=== PATIENT | female | born 1995 | race Caucasian/White ===

== ENCOUNTER 2016-12-29 21:06 | Emergency (ER) | payer OTHER ==
[~2016-12-29] VITALS: Ht 157.5 cm; Wt 104.3 kg
[~2016-12-29 21:06] MED LIST: COPAXONE40 MG/1 ML SC; SOLU-MEDRO1000 MG/8 IV; SOLU-MEDROL1000 MG IV; TOPAMAX25 M3 PO; TYLENOL EXTRA500 M2 PO; VICODIN 5-3001 EACH PO; VITAMIN D5000 UNIT PO
--- NOTE | 2016-12-29 22:30 | ED GENERAL ADULT ---
History of Present Illness General Chief Complaint: General Adult Stated Complaint: MS FLARE UP Source: patient, family, old records Exam Limitations: no limitations Vital Signs & Intake/Output Vital Signs & Intake/Output Vital Signs Date Time Temp Pulse Resp B/P Pulse O2 O2 Flow FiO2 Ox Delivery Rate 12/30 2123 97.8 73 20 127/85 98 Room Air Allergies Coded Allergies: aspirin (Severe, FACIAL SWELLING 12/29/16) NSAIDS (Non-Steroidal Anti-Inflamma (FACE SWELLING/SOB 12/29/16) Reconcile Medications Acetaminophen (Tylenol Extra Strength) 500 MG TABLET 1 TAB PO TID PRN HEADACHE Cholecalciferol (Vitamin D3) (Vitamin D) 5,000 UNIT TABLET 1 TAB PO DAILY VITAMIN (Reported) Glatiramer Acetate (Copaxone) 40 MG/ML SYRINGE 1 SYR SC Tuesday MS (Reported) Hydrocodone/Acetaminophen (Vicodin 5-300 MG Tablet) 5 MG-300 MG TABLET 1 TAB PO Q6H PRN HEADACHE Methylprednisolone. (Solu-Medrol 1,000 MG Vial) 1,000 MG/8 ML VIAL 1 GM IV DAILY MULTIPLE SCLEROSIS Topiramate (Topamax) 25 MG TABLET 1 TAB PO TID MIGRAINES (Reported) Triage Note: TRIAGE: PT TO ER WITH MOTHER C/C HEADACHE PAIN SINCE THIS MORNING WHICH TRIGGERS A MS FLARE UP FOR HER. DID NOT TRY ANY OTC PAIN RELIEVERS, TAKES TOPAMAX DAILY AT BASELINE. Triage Nurses Notes Reviewed? yes : No Patient currently breastfeeds: No HPI: Patient presented with an MS exacerbation. Patient states over the past few days her legs have been feeling more weak and she is intermittently losing vision in her left eye. Patient was talking to her neurologist via emailed today and he had offered to put her on oral steroids however when she responded that she would like that he never responded. Patient presents to the emergency room for evaluation. Patient denies any fevers or chills. There is no coughing. Patient denies any injury. Past History Travel History Traveled to [place] past 21 day No Medical History Any Pertinent Medical History? see below for history Neurological: migraine, multiple sclerosis EENT: NONE Cardiovascular: NONE Respiratory: NONE Gastrointestinal: NONE Hepatic: NONE Renal: NONE Musculoskeletal: NONE Psychiatric: NONE Endocrine: NONE Blood Disorders: NONE Cancer(s): NONE PREVENTION RN/Reproductive: NONE History of MRSA: No History of VRE: No History of CDIFF: No Surgical History Surgical History: Tonsillectomy, foot surgery. Psychosocial History Who do you live with Family Services at Home None What is your primary language Macedonian Tobacco Use: Quit >30 days ago ETOH Use: occasional use Illicit Drug Use: denies illicit drug use Family History Family History, If Any: cousin FH: multiple sclerosis Hx Contributory? No Review of Systems Review of Systems Constitutional: Reports: see HPI, weakness. EENTM: Reports: no symptoms. Respiratory: Reports: no symptoms. Cardiovascular: Reports: no symptoms. GI: Reports: no symptoms. Genitourinary: Reports: no symptoms. Musculoskeletal: Reports: no symptoms. Skin: Reports: no symptoms. Neurological/Psychological: Reports: see HPI. Hematologic/Endocrine: Reports: no symptoms. Immunologic/Allergic: Reports: no symptoms. All Other Systems: Reviewed and Negative Physical Exam Physical Exam General Appearance: well developed/nourished, alert, awake, anxious, mild distress Head: atraumatic, normal appearance Eyes: Bilateral: PERRL, EOMI. Ears, Nose, Throat: normal pharynx, normal ENT inspection, hearing grossly normal Neck: normal inspection, supple, full range of motion Respiratory: normal breath sounds, chest non-tender, no respiratory distress, lungs clear Cardiovascular: regular rate/rhythm, normal peripheral pulses Gastrointestinal: normal bowel sounds, soft, non-tender, no organomegaly Back: normal inspection, normal range of motion Extremities: normal inspection, normal capillary refill, normal range of motion, no edema Neurologic/Psych: no motor/sensory deficits, awake, alert, oriented x 3, normal mood/affect Skin: intact, normal color, warm/dry Lymphatic: no anterior cervical janusz Core Measures ACS in differential dx? No CVA/TIA Diagnosis: No Severe Sepsis Present: No Septic Shock Present: No Progress Differential Diagnoses I considered the following diagnoses in my evaluation of the patient: [MS exacerbation] Plan of Care: Orders Procedure Date/time Status URINALYSIS 12/29 2229 Complete HUMAN BETA HCG SCREEN 12/29 2229 Complete COMPREHENSIVE METABOLIC PANEL 12/29 2229 Complete CBC WITHOUT DIFFERENTIAL 12/29 2229 Complete Current Medications Sig/Tony Start time Last Medication Dose Stop Time Status Admin Methylprednisolone 1,000 MG ONCE ONE 12/29 2329 AC (Solu Medrol) 12/30 002 Dextrose/Water 1,000 ML (D5W 1000) Laboratory Tests 12/29/16 2240: Anion Gap 12, Estimated GFR > 60, BUN/Creatinine Ratio 21.0, Glucose 85, Calcium 9.7, Total Bilirubin 0.4, AST 19, ALT 33, Alkaline Phosphatase 68, Total Protein 7.0, Albumin 4.2, Globulin 2.8, Albumin/Globulin Ratio 1.5, Total Beta HCG NEGATIVE, CBC w Diff NO MAN DIFF REQ, RBC 4.66, MCV 91.6, MCH 30.3, RDW 11.8, MPV 8.3, Gran % 65.7, Lymphocytes % 24.6, Monocytes % 8.2, Eosinophils % 1.1, Basophils % 0.4, Absolute Granulocytes 6.4, Absolute Lymphocytes 2.4, Absolute Monocytes 0.8 H, Absolute Eosinophils 0.1, Absolute Basophils 0, PUBS MCHC 33.1 12/29/163: Urine Color YEL, Urine Clarity CLEAR, Urine pH 7.0, Ur Specific [place] 1.015, Urine Protein NEG, Urine Ketones NEG, Urine Nitrite NEG, Urine Bilirubin NEG, Urine Urobilinogen 0.2, Ur Leukocyte Esterase NEG, Ur Microscopic EXAM NOT REQUIRED, Urine Hemoglobin NEG, Urine Glucose NEG Initial ED EKG: none Comments: Anthony David MD did not return the phone call to the emergency department. Options discussed with the patient and her mother. Patient will receive one dose of pulse dose steroids here in the emergency room and then she will contact him in the morning. If she is still unable to get ahold of him she'll return to the emergency room for further treatment. Departure Departure Disposition: HOME OR SELF CARE Condition: Stable Clinical Impression Primary Impression: Exacerbation of multiple sclerosis Referrals: RIKKI ASHER,SHANNAN Guzman (PCP/Family) Additional Instructions: Follow-up with Dr. David tomorrow. If you unable to get a hold of him then return to the emergency department for further treatment. Return to the emergency room for any concerns. Departure Forms: Customer Survey General Discharge Information Critical Care Note Critical Care Note Critical Care Time: non-applicable
[2016-12-29 22:53] LABS: ABSOLUTE BASOPHIL COUNT 0 /CUMM (0.0-0.2); ABSOLUTE EOSINOPHIL COUNT 0.1 /CUMM (0.0-0.7); ABSOLUTE GRANULOCYTE CT 6.4 /CUMM (1.4-6.5); ABSOLUTE LYMPH COUNT 2.4 /CUMM (1.2-3.4); ABSOLUTE MONOCYTE COUNT 0.8 /CUMM (0.10-0.60); BASOPHIL % 0.4 % (0.0-2.0); EOSINOPHIL % 1.1 % (0-5); GRANULOCYTE % 65.7 % (42.2-75.2); HEMATOCRIT 42.7 % (37-47); MEAN CORPUSCULAR HGB 30.3 PG (27.0-31.0); MEAN CORPUSCULAR HGB CONC 33.1 G/DL (33.0-37.0); MEAN CORPUSCULAR VOLUME 91.6 FL (81.0-99.0); MEAN PLATELET VOLUME 8.3 FL (7.4-10.4); PLATELET COUNT 325 /CUMM (130-400); RBC DISTRIBUTION WIDTH 11.8 % (11.5-14.5); RED BLOOD CELL CT 4.66 /CUMM (4.20-5.40); WHITE BLOOD CELL COUNT 9.8 /CUMM (4.8-10.8)
[2016-12-30 03:56] VITALS: BP 125/84
== END 2016-12-30 03:56 ==
LOC: ERH 21:06
PROVIDERS: Emergency Medicine
DX: G35 Multiple sclerosis (principal)
CPT/HCPCS: 81003; 96374; J1040; J7060